=== PATIENT | male | born 1965 | race Caucasian/White ===

== ENCOUNTER 2025-08-18 06:44 | Day surgery (SDC) | payer MEDICARE ==
[~2025-08-18 06:44] MED LIST: EPINEPHrine 0.3 MG in Ophthalmic Irrigation Solution 500 ML IRR SCH
[2025-08-18] MEDS ORDERED: Cyclopentolate 1% Opth Drop 2 ML BOT ONE (07:42)
[2025-08-18] MEDS ORDERED: fentaNYL PF 100 MCG/2 ML SYRINGE ONE (08:23)
[2025-08-18] MEDS ORDERED: PROPOFOL 20 ML ONE (08:23)
[2025-08-18] MEDS ORDERED: Lidocaine 4% PF 5 ML AMP ONE (08:54)
[2025-08-18] MEDS ORDERED: CEFAZOLIN 1 GM VIAL ONE (08:54)
[2025-08-18] MEDS ORDERED: Maxitrol 0.1% Opth Oint 3.5 GM TUBE ONE (08:54)
[2025-08-18] MEDS ORDERED: Lidocaine 1% PF 5 ML VIAL ONE (08:54)
== END 2025-08-18 10:28 | disposition home or self-care (01) ==
LOC: SDC 06:44
PROVIDERS: ATTEND Ophthalmology Retina Specialist
PROC: 08B53ZZ Excision of Left Vitreous, Percutaneous Approach (ICD-10-PCS; principal; 2025-08-18)
DX: H33.022 Retinal detachment with multiple breaks, left eye (principal)
CPT/HCPCS: 67025; 67108; J0166; J0690; J2250; J2704; J3301; J3490

== ENCOUNTER 2025-09-08 09:33 | Day surgery (SDC) | payer MEDICARE ==
[2025-09-07 15:04] VITALS: BMI 30.9
[2025-09-08] MEDS ORDERED: Cyclopentolate 1% Opth Drop 2 ML BOT ONE (10:44)
[2025-09-08] MEDS ORDERED: Lidocaine 1% PF 5 ML VIAL ONE (10:53)
[2025-09-08] MEDS ORDERED: Maxitrol 0.1% Opth Oint 3.5 GM TUBE ONE (11:27)
[2025-09-08] MEDS ORDERED: PROPOFOL 200 MG/20 ML VIAL ONE (11:27)
[2025-09-08] MEDS ORDERED: Lidocaine 4% PF 5 ML AMP ONE (11:27)
== END 2025-09-08 13:18 | disposition home or self-care (01) ==
LOC: SDC 09:33
PROVIDERS: ATTEND Ophthalmology Retina Specialist
PROC: 08B53ZZ Excision of Left Vitreous, Percutaneous Approach (ICD-10-PCS; principal; 2025-09-08)
DX: H33.42 Traction detachment of retina, left eye (principal); H35.342 Macular cyst, hole, or pseudohole, left eye; I10 Essential (primary) hypertension; Z88.1 Allergy status to other antibiotic agents
CPT/HCPCS: 67113; 93005; C1814; J0166; J2250; J3010; 93010; J2704; J3301; J3490